=== PATIENT | male | born 1935 | race Caucasian/White ===

== ENCOUNTER 2019-12-06 13:41 | Outpatient (CLI) | payer MEDICARE, OTHER, SELFPAY ==
--- NOTE | ~2019-12-06 | XR_ITS ---
EXAMINATION: XR sacroiliac jt inj w imag RT DATE: 12/06/2019 14:38 INDICATION: Right hip and low back pain TECHNIQUE: A time-out was performed to verify the patient's name, date of , and procedure to b e performed. The procedure including the risks, benefits, and alternatives was discussed with the pat ient. Risks discussed included bleeding and infection. The patient understood the risks and agreed to proceed. The skin overlying the right sacroiliac joint was prepped and draped in usual sterile fash ion. Anesthetic was administered with 1% lidocaine subcutaneously. A 22 G needle was advanced under fluoroscopic guidance into the joint. Injection of 0.4 mL of Omnipaque 240 confirmed intra-articula r position of the needle. Subsequently, injectate consisting of 7 mm of a 5:1:1 mixture of 1% lidoca ine: 40 mg/mL Kenalog and 4 mg/mL dexamethasone for a total dose of 20 mg Kenalog and 4 mg dexamethas one was instilled. Washout of contrast was seen confirming intra-articular administration. The needle was removed and the entry site was cleaned and dressed. There were no immediate complications. Fluo roscopy exposure time was 0.5 minutes. The total number of images was 2. FINDINGS: Real-time fluoroscopy demonstrates the needle in the right sacroiliac joint. Patient's pain prior to procedure:2/10. Patient's pain following the procedure: 2/10. IMPRESSION: 1. Right sacroiliac joint injection of local anesthetic and steroid with no change in the patient's p resenting pain. Reviewed, dictated and finalized at location A. IMPRESSION: 1. Right sacroiliac joint injection of local anesthetic and steroid with no lizeth nge in the patient's presenting pain.
== END 2019-12-06 13:42 | disposition home or self-care (01) ==
PROVIDERS: PCP Internal Medicine; Visit Provider Internal Medicine
DX: M25.551 Pain in right hip (principal); M54.5 Low back pain
CPT/HCPCS: 27096; G0260; J1100; J3301; Q9966

== ENCOUNTER 2020-05-19 08:40 | Outpatient (CLI) | payer MEDICARE, SELFPAY ==
[2020-05-19 09:00] LABS: Basophils Absolute Auto 0.03 K/mm3 (0.00-0.10); Basophils Percent Auto 0.5 % (0.0-1.0); Eosinophils Absolute Auto 0.21 K/mm3 (0.02-0.50); Eosinophils Percent Auto 3.2 % (1.0-6.0); Hematocrit 35.4 % (37.0-46.0); Hemoglobin 11.6 g/dL (12.4-15.3); Immature Granulocyte Absolute 0.02 K/mm3 (0.00-0.00); Immature Granulocyte Percent A 0.3 % (0.0-0.0); Lymphocytes Absolute Auto 0.67 K/mm3 (1.10-4.50); Lymphocytes Percent Auto 10.1 % (18.0-42.0); Mean Corpuscular HGB Conc 32.8 g/dL (32.0-36.0); Mean Corpuscular Volume 85.5 fL (78.0-102.0); Mean Platelet Volume 11.4 fl (8.7-11.0); Monocytes Absolute Auto 0.57 K/mm3 (0.10-0.90); Monocytes Percent Auto 8.6 % (2.0-11.0); Neutrophils Absolute Auto 5.1 K/mm3 (1.7-7.2); Neutrophils Percent Auto 77.3 % (50.0-70.0); Platelet Count Result 125 K/mm3 (150-420); Red Blood Count 4.14 M/mm3 (4.70-6.10); Red Cell Distribution Width 13.7 % (11.6-14.4); White Blood Count 6.6 K/mm3 (4.8-10.8)
[2020-05-19 09:15] LABS: Add Urine Microscopic? YES; Appearance Urine Clear (Clear); Bilirubin Urine Negative (Negative); Blood Urine Negative (Negative); Color Urine Yellow (Yellow); Glucose Urine UA Negative (Negative); Ketones Urine Negative (Negative); Leukocyte Esterase Ur Negative (Negative); Nitrate Urine Negative (Negative); Protein Urine Trace (Negative); Specific Grav Ur 1.015 (1.010-1.020); Urobilinogen Urine 0.2 mg/dL (0.2-1.0)
[2020-05-19 09:16] LABS: Hemoglobin A1C 7.2 % (<5.7)
[2020-05-19 09:22] LABS: RBC Urine 0-2 /hpf (0-2)
[2020-05-19 09:23] LABS: Bacteria Urine Trace /hpf; WBC Urine 0-3 /hpf (0-3)
[2020-05-19 09:29] LABS: BNP 261 pg/mL (0-100)
[2020-05-19 09:38] LABS: Creatinine Urine 112.74 mg/dL (40-278); MALB Creatinine Ratio 106.4 mg/g (0-30)
[2020-05-19 10:01] LABS: Alanine Aminotransferase 49 U/L (16-63); Albumin Level 3.4 g/dL (3.4-5.0); Alkaline Phosphatase 128 U/L (46-116); Anion Gap 11 mmol/L (8-16); Aspartate Amino Transferase 36 U/L (15-37); Bilirubin,Total 0.6 mg/dL (0.00-1.00); Blood Urea Nitrogen 65 mg/dL (7-18); Carbon Dioxide 31 mmol/L (21-32); Chloride 101 mmol/L (98-108); Cholesterol 120 mg/dL (0-200); Estimated Glomerular Filt Rate 21; Ferritin 544 ng/mL (26-388); Free T4 Free Thyroxine 1.13 ng/dL (0.76-1.46); Glucose 171 mg/dL (70-99); HDL Direct 28 mg/dL (40-60); Iron 59 ug/dL (65-175); LDL Cholesterol Calculated 69 mg/dL (<130); Osmolality Calculated 318 mOsm/kg (285-295); Percent Iron Saturation 26 % (12-57); Phosphorus 3.9 mg/dL (2.6-4.7); Potassium 3.2 mmol/L (3.5-5.1); Sodium 143 mmol/L (136-145); Total Protein 7.2 g/dL (6.4-8.2); Triglycerides 116 mg/dL (0-150); Vitamin B12 700 pg/mL (193-986)
[2020-05-19 10:06] LABS: Calcium 7.9 mg/dL (8.5-10.1)
[2020-05-23 11:15] LABS: Parathyroid Intact 81 pg/mL (14-64)
== END 2020-05-19 08:41 | disposition home or self-care (01) ==
PROVIDERS: PCP Internal Medicine
DX: R16.0 Hepatomegaly, not elsewhere classified (principal); E11.21 Type 2 diabetes mellitus with diabetic nephropathy; N18.4 Chronic kidney disease, stage 4 (severe); D50.9 Iron deficiency anemia, unspecified; E78.2 Mixed hyperlipidemia; I50.9 Heart failure, unspecified; D63.8 Anemia in other chronic diseases classified elsewhere; E53.8 Deficiency of other specified B group vitamins
CPT/HCPCS: 36415; 80053; 80061; 81001; 82043; 82607; 82728; 83036; 83540; 83550; 83880; 83970; 84100; 84439; 84443; 85025

== ENCOUNTER 2020-07-10 10:08 | Outpatient (CLI) | payer MEDICARE, SELFPAY ==
[2020-07-10 11:05] LABS: SARS-CoV-2 Ag Negative (Negative)
== END 2020-07-10 10:09 | disposition home or self-care (01) ==
LOC: CHSLAB 10:12
PROVIDERS: PCP Internal Medicine; Visit Provider Internal Medicine
DX: Z20.822 Contact with and (suspected) exposure to COVID-19 (principal)
CPT/HCPCS: 87426; C9803

== ENCOUNTER 2020-07-26 11:12 | Emergency (ER) | payer MEDICARE, OTHER, SELFPAY ==
--- NOTE | ~2020-07-26 | XR_ITS ---
EXAMINATION: XR chest 1V portable INDICATION: Cough and shortness of breath TECHNIQUE: Portable AP chest at 1257 hours COMPARISON: 05/18/2019 FINDINGS: A right internal jugular Port-A-Cath ends with its tip at the superior cavoatrial junction. A dual-lead cardiac pacemaker of the left chest wall ends with leads in expected locations. Cardiome winnie is noted. There is no pleural effusion or pneumothorax. There are minimal opacities of the lung bases. IMPRESSION: 1. Bibasilar airspace opacities, consistent with atelectasis versus pneumonia. 2. Cardiomegaly. Reviewed, dictated and finalized at location A. ER PRESS PUMPER
[2020-07-26 11:15] VITALS: BP 142/81; PULSE 80; RESP 14; TEMP 36.6; O2SAT 99
--- NOTE | 2020-07-26 11:50 | ECG_ITS ---
Measurements Intervals [place] Rate: 76 P: WA: 0 QRS: -68 QRSD: 181 T: 102 QT: 482 QTc: 543 Interpretive Statements ELECTRONIC VENTRICULAR PACEMAKER BASELINE ARTIFACT- I, II, III, AVR, AVF, V1-V3, V5-V6 NO FURTHER INTERPRETATION IS POSSIBLE ATYPICAL ECG Electronically Signed On 07-26-2020 12:27:29 [employer]ING MACHINE OPERATOR by Alessio Gregory D.O.
--- NOTE | 2020-07-26 11:55 | ED.GENADULT ---
HPI - General Adult General Chief complaint: Urogenital-Male Stated complaint: not feeling well Source: patient Limitations: no limitations History of Present Illness HPI narrative: [place] is an 85M with a complex PMH of HTN, BPH, DC s/p stents, heart block s/p pacemaker, colon polyps s/p resection, and current liver cancer on chemo and radiation that was referred to the ED for multiple concerns. For several days he has had increased urinary frequency, a few episodes of dysuria, decreased stream and weakness. He has had some subjective chills but no fevers. No flank or back pain. For the last two days he has also had some chest tightness with breathing, productive cough, SOB with lying down and mild exercise intolerance. No chest pain currently. No vomiting, lightheadedness or syncope. Related Data Home Medications Medication Instructions Recorded Confirmed amlodipine 10 mg PO DAILY 07/26/20 07/26/20 aspirin [Adult Aspirin] 81 mg PO DAILY 07/26/20 07/26/20 atorvastatin 10 mg PO DAILY 07/26/20 07/26/20 cyanocobalamin (vitamin B-12) 1,000 mcg PO DAILY 07/26/20 07/26/20 ferrous sulfate 325 mg PO BID 07/26/20 07/26/20 finasteride 5 mg PO DAILY 07/26/20 07/26/20 insulin asp prt-insulin aspart 30 unit SUBCUT DAILY 07/26/20 07/26/20 [Novolog Mix 70-30 U-100 Insuln] losartan 100 mg PO DAILY 07/26/20 07/26/20 metoprolol succinate 25 mg PO DAILY 07/26/20 07/26/20 [id number]-vit K 1 tablet PO DAILY 07/26/20 07/26/20 [Adults Multivitamin] omeprazole 20 mg PO DAILY 07/26/20 07/26/20 oxycodone 5 mg PO Q4-5H PRN 07/26/20 07/26/20 polyethylene glycol 3350 17 g PO DAILY 07/26/20 07/26/20 potassium chloride 10 meq PO DAILY 07/26/20 07/26/20 prochlorperazine maleate 10 mg PO Q6-12H PRN 07/26/20 07/26/20 rivaroxaban [Xarelto] 2.5 mg PO BID 07/26/20 07/26/20 tamsulosin 0.4 mg PO DAILY 07/26/20 07/26/20 torsemide 20 mg PO EVERY OTHER DAY 07/26/20 07/26/20 Allergies Allergy/AdvReac Type Severity Reaction Status Date / Time No Known Allergies Allergy Mild Unverified 08/25/06 15:22 Review of Systems Constitutional: Constitutional: Reports chills, Denies fever(s) and Reports weakness Eyes: Eyes: Reports no additional eye complaints ENT: Reports system reviewed and no additional complaints, except as documented Cardiovascular: Cardiovascular: Denies rapid heart rate, Denies radiating jaw, neck or arm pain and Denies slow heart rate Respiratory: Respiratory: Reports chest congestion, Reports cough, Reports dyspnea and Denies wheezing Gastrointestinal: Gastrointestinal: Denies constipation, Denies diarrhea and Denies vomiting Genitourinary: Genitourinary: Reports as per HPI Musculoskeletal: Musculoskeletal: Reports no additional musculoskeletal complaints Integumentary/Breasts: Skin/Breast: Reports system reviewed and no additional complaints, except as docu Neurologic: Reports system reviewed and no additional complaints, except as documented Psychiatric: Psychiatric: Reports no additional psychiatric complaints Exam Const: General: no acute distress and alert Orientation/consciousness: patient oriented x3 Limitations: No altered mental status HENMT: Head: normal to inspection Other: atraumatic Eyes: Conjunctivae: conjunctivae normal Pupils: Equal, round and reactive pupils present Neck: Neck: normal visual inspection Chest: Chest palpation & inspection: normal inspection of the chest Resp: Effort & Inspection: normal respiratory effort, not labored, no retractions, not tachypneic and no use of accessory muscles Auscultation: clear to auscultation bilaterally Cardio: Rate: regular rate Rhythm: regular rhythm Heart sounds: no murmurs GI: GI Palp: Yes Soft to palpation, No Tenderness to palpation present (GI) and No Guarding due to palpation present (GI) Back/Spine/Pelvis: Back: no CVA tenderness Skin: General skin exam: normal color Rashes: no rashes Neuro: General: patient oriented x3 and moves all
[2020-07-26 12:17] LABS: Basophils Absolute Auto 0.03 K/mm3 (0.00-0.10); Basophils Percent Auto 0.5 % (0.0-1.0); Eosinophils Absolute Auto 0.16 K/mm3 (0.02-0.50); Eosinophils Percent Auto 2.5 % (1.0-6.0); Hematocrit 31.7 % (37.0-46.0); Hemoglobin 9.9 g/dL (12.4-15.3); Immature Granulocyte Absolute 0.05 K/mm3 (0.00-0.00); Immature Granulocyte Percent A 0.8 % (0.0-0.0); Lymphocytes Absolute Auto 0.84 K/mm3 (1.10-4.50); Lymphocytes Percent Auto 13.3 % (18.0-42.0); Mean Corpuscular HGB Conc 31.2 g/dL (32.0-36.0); Mean Corpuscular Volume 89.5 fL (78.0-102.0); Monocytes Absolute Auto 0.62 K/mm3 (0.10-0.90); Monocytes Percent Auto 9.8 % (2.0-11.0); Neutrophils Absolute Auto 4.6 K/mm3 (1.7-7.2); Neutrophils Percent Auto 73.1 % (50.0-70.0); Platelet Count Result 225 K/mm3 (150-420); Red Blood Count 3.54 M/mm3 (4.70-6.10); Red Cell Distribution Width 14.4 % (11.6-14.4); White Blood Count 6.3 K/mm3 (4.8-10.8)
[2020-07-26 12:18] LABS: Add Urine Microscopic? YES; Appearance Urine Clear (Clear); Bilirubin Urine Negative (Negative); Blood Urine 1+ (Negative); Color Urine Yellow (Yellow); Glucose Urine UA Negative (Negative); Ketones Urine Negative (Negative); Leukocyte Esterase Ur Negative (Negative); Nitrate Urine Negative (Negative); Protein Urine 1+ (Negative); Specific Grav Ur 1.025 (1.010-1.020); Urobilinogen Urine 0.2 mg/dL (0.2-1.0); pH Urine 5.5 (5.0-8.0)
[2020-07-26 12:24] LABS: RBC Urine 0-2 /hpf (0-2); Squamous Epithelial Cell Urine Occasional /hpf (Few); WBC Urine 0-3 /hpf (0-3)
[2020-07-26 12:25] LABS: Bacteria Urine Trace /hpf
[2020-07-26 12:32] LABS: Alanine Aminotransferase 83 U/L (16-63); Albumin Level 2.8 g/dL (3.4-5.0); Alkaline Phosphatase 132 U/L (46-116); Anion Gap 11 mmol/L (8-16); Aspartate Amino Transferase 44 U/L (15-37); Bilirubin,Total 0.4 mg/dL (0.00-1.00); Blood Urea Nitrogen 28 mg/dL (7-18); Calcium 8.8 mg/dL (8.5-10.1); Carbon Dioxide 24 mmol/L (21-32); Chloride 104 mmol/L (98-108); Estimated CRCL calculation 25 ml/min; Estimated Glomerular Filt Rate 29; Glucose 136 mg/dL (70-99); Osmolality Calculated 295 mOsm/kg (285-295); Potassium 4.1 mmol/L (3.5-5.1); Sodium 139 mmol/L (136-145); Troponin I 25.5 ng/L (0.00-60.4)
[2020-07-26 12:33] LABS: SARS-CoV-2 Ag Negative (Negative)
[2020-07-26 12:36] LABS: BNP 1720 pg/mL (0-100)
[2020-07-26] MEDS: FUROSEMIDE INJ 40 MG/4 ML VIAL IV PUSH (13:15)
[2020-07-26 14:30] VITALS: BP 150/71; PULSE 70; RESP 17; O2SAT 98
[2020-07-26] MEDS: HEPARIN SOD FLUSH 500 UNITS/5 ML SYRINGE (14:33)
--- NOTE | 2020-07-26 14:48 | PC.NURSE ---
URINE RESULTS FAXED TO ONCOLOGIST OFFICE REQUESTED BY PATIENT
== END 2020-07-26 14:47 | disposition home or self-care (01) ==
PROVIDERS: Emergency Provider Family Medicine; PCP Internal Medicine
DX: J44.1 Chronic obstructive pulmonary disease with (acute) exacerbation (principal); I10 Essential (primary) hypertension; C22.8 Malignant neoplasm of liver, primary, unspecified as to type
CPT/HCPCS: 36415; 71045; 80053; 81001; 83880; 84484; 85025; 87426; 93005; 96374; 99283; 99284; C9803; J1940